=== PATIENT | male | born 1990 | race Two or more races ===

== ENCOUNTER 2019-05-19 02:40 | Emergency (ER) | payer SELFPAY ==
[~2019-05-19] VITALS: Ht 177.8 cm; Wt 77.0 kg
[2019-05-19] MEDS ORDERED: ONDANSETRON HCL 4MG/2ML INJ IV STA (03:20)
[2019-05-19] MEDS ORDERED: SODIUM CHLORIDE 0.9% 1,000 ML IV ONE (03:20)
[2019-05-19 03:29] LABS: BASOPHILS % 1.1 % (0.0-2.0); EOSINOPHILS % 1.9 % (0.0-5.0); HEMATOCRIT. 42.8 % (42.0-52.0); HEMOGLOBIN. 14.9 g/dL (14.0-18.0); LYMPHOCYTES % 69.3 % (20.0-50.0); MEAN CORPUSCULAR VOLUME 91.8 fL (80.0-94.0); MEAN PLATELET VOLUME 7.1 fl (7.4-10.4); NEUTROPHILS % 21.7 % (40.0-76.0); PLATELET 298 x1000/uL (130-400); RED BLOOD CELL COUNT 4.66 mill/uL (4.7-6.1); RED CELL DISTRIBUTION WIDTH 12.9 % (11.6-14.6)
[2019-05-19 03:35] LABS: CHLORIDE 104 mEq/L (98-107)
[2019-05-19 04:02] LABS: ETHANOL BLOOD 347 mg/dL
[2019-05-19 06:24] VITALS: BP 130/62
== END 2019-05-19 06:25 | disposition home or self-care (01) ==
LOC: EDBD 02:54 → ER 02:54
DX: F10.129 Alcohol abuse with intoxication, unspecified (principal); Y90.8 Blood alcohol level of 240 mg/100 ml or more; I10 Essential (primary) hypertension
CPT/HCPCS: 36415; 70450; 71045; 80053; 80307; 80320; 80329; 85025; 96361; 96374; 99284; J2405; J7030; G0480